=== PATIENT | male | born 1980 | race Hispanic/Latino ===

== ENCOUNTER 2018-03-13 14:18 | Emergency (ER) | payer OTHER ==
[2018-03-13 14:22] VITALS: BP 132/90; PULSE 81; RESP 16; TEMP 97; O2SAT 100; BMI 26.2
[2018-03-13] MEDS ORDERED: Lidocaine 2% Inj (20ml) INFIL ONE (14:50)
[2018-03-13] MEDS ORDERED: Lidocaine Hydrochloride 5 ML INJ ONE (14:59)
--- NOTE | 2018-03-13 15:24 | ED PDOC ---
HPI: Wound Care - HPI Time Seen by Provider: 03/13/18 14:50 Chief Complaint (Nursing): Abnormal Skin Integrity Chief Complaint (Provider): Laceration to left pinky finger History Per: Patient History Of Present Illness: 37 year old male presents to the emergency department to evaluated for a laceration to his right hand. Patient states that he was washing dishes and cut his pinky finger on piece of broken glass. Patient states that he was seen at [facility] and recommended to present to the ED for further evaluation. Unsure of tetanus status but believes within 5 years. Patient intends to follow up with PMD tomorrow and will ask at that time. Patient is left hand dominant. Exam Limitations: no limitations Onset/Duration Of Symptoms: Mins Current Symptoms Are (Timing): Still Present Location Of Injury: Left: Hand (5th digit) Severity: None Past Medical History Reviewed: Historical Data, Nursing Documentation, Vital Signs Vital Signs: Last Vital Signs Temp 97 F L 03/13/18 14:20 Pulse 81 03/13/18 14:20 Resp 16 03/13/18 14:20 BP 132/90 03/13/18 14:20 Pulse Ox 100 03/13/18 14:20 - Medical History PMH: No Chronic Diseases - Surgical History Surgical History: No Surg Hx - Family History Family History: States: Unknown Family Hx - Home Medications Home Medications: Ambulatory Orders Medication Instructions Recorded Cephalexin [Keflex] 500 mg PO TID #15 capsule 03/13/18 - Allergies Allergies/Adverse Reactions: Allergies Allergy/AdvReac Type Severity Reaction Status Date / Time Sulfa (Sulfonamide Allergy RASH Verified 03/13/18 15:03 Antibiotics) Review of Systems Musculoskeletal: Positive for: Other (laceration to left pinky finger) Physical Exam - Reviewed Nursing Documentation Reviewed: Yes Vital Signs Reviewed: Yes - Physical Exam Appears: Positive for: Non-toxic, No Acute Distress Skin: Positive for: Normal Color, Warm, Dry. Negative for: Rash Cardiovascular/Chest: Positive for: Regular Rate, Rhythm, Chest Non Tender. Negative for: Tachycardia Respiratory: Positive for: Normal Breath Sounds. Negative for: Rales, Rhonchi, Wheezing, Respiratory Distress Extremity: Positive for: Normal ROM, Other (right hand: V-shaped Flap like laceration lateral aspect of 5th digit approximately 8 cm; able to flex and extend DIP and PIP.). Negative for: Tenderness, Calf Tenderness, Deformity, Swelling Neurologic/Psych: Positive for: Alert, Oriented, Gait - ECG O2 Sat by Pulse Oximetry: 100 (RA) Pulse Ox Interpretation: Normal Procedure: Wound Repair - Time Performed Time Performed: 14:30 - Time Out Time Out: Side verified, Site verified, Patient ID confirmed, Sterile procedures obs. - Procedure Procedure: Wound Repair: laceration repair - Consent Obtained Consent obtained: Verbal - Performed by Performed by: Mid-level Provider (Luis Delgado PA-C) - Indications Indication(s):: Laceration - Location Location:: Left Finger:: Little Shape:: Other (V-shaped) Dimensions Length cm: 8 - Anesthetic Technique Anesthetic Technique: Regional block (digital block) Local/Regional Anesthetic:: Lidocaine 2% - Debris Debris:: None - Irrigated Irrigated with ml of normal saline: 150 ml sterile water - Complexity Complexity:: Simple (one layer) - Wound repair method Sutures:: # (Eighteen), Size (4:0), Type (Nylon), Technique (interrupted) - Patient tolerated procedure Patient Tolerated Procedure:: Well Medical Decision Making Medical Decision Makin Initial Impression 37 year old male presenting with laceration to left 5th digit Initial Plan: * Lidocaine 2% 20 mL * Reevaluation Documented by Kamilla Stiles acting as a scribe for Luis Delgado PA-C. All medical record entries made by the Scribe were at my direction and personally dictated by me. I have reviewed the chart and agree that the record accurately reflects my personal performance of the history, physical exam, medical decision making, and the department course for this patient. I have also personally directed, reviewed, and agree with the discharge instructions and disposition. Disposition - Clinical Impression Clinical Impression: Laceration - Patient ED Disposition Is Patient to be Admitted: No - Disposition Referrals: Kristy Gallegos MD [Medical Doctor] - Disposition: Routine/Home Disposition Time: 15:59 Condition: FAIR Additional Instructions: FOLLOW UP WITH PMD IN 1-2 DAYS FOR WOUND CHECK RETURN IN 8-10 DAYS FOR REMOVAL OF SUTURES Prescriptions: Cephalexin [Keflex] 500 mg PO TID #15 capsule Instructions: Laceration Repair With Stitches (DC) Forms: [facility] ED School/Work Excuse
[2018-03-13] MEDS ORDERED: Bacitracin 500 Units/gm Oint Foilpak UD ONE (16:08)
== END 2018-03-13 16:30 | disposition home or self-care (01) ==
LOC: H.ER 14:18
DX: S61.217A Laceration without foreign body of left little finger without damage to nail, initial encounter (principal); W25.XXXA Contact with sharp glass, initial encounter; Y93.G1 Activity, food preparation and clean up